=== PATIENT | female | born 1940 | race Caucasian/White ===

== ENCOUNTER 2017-11-27 08:50 | Outpatient (CLI) | payer OTHER | END 2017-11-27 09:08 | disposition home or self-care (01) | LOC: SONOGRAMA 08:50 | DX: M25.512 Pain in left shoulder (principal) ==

== ENCOUNTER 2018-08-20 07:55 | Outpatient (CLI) | payer OTHER | END 2018-08-20 11:42 | disposition home or self-care (01) | LOC: MRI 07:55 | DX: M25.572 Pain in left ankle and joints of left foot (principal) | CPT/HCPCS: 73723; A9579; 73720 ==

== ENCOUNTER 2019-01-04 07:07 | Outpatient (CLI) | payer OTHER | END 2019-01-04 07:11 | disposition home or self-care (01) | LOC: RAD 07:07 | DX: M25.512 Pain in left shoulder (principal) ==

== ENCOUNTER 2019-02-17 08:28 | Outpatient (CLI) | payer OTHER | END 2019-02-17 08:30 | disposition home or self-care (01) | LOC: SONOGRAMA 08:28 → MAMO-SONO 09:15 | DX: M25.512 Pain in left shoulder (principal) ==

== ENCOUNTER 2019-08-05 08:25 | Outpatient (CLI) | payer OTHER | END 2019-08-05 08:27 | disposition home or self-care (01) | LOC: MRI 08:25 | DX: M54.5 Low back pain (principal) | CPT/HCPCS: 72148 ==

== ENCOUNTER 2020-08-28 06:40 | Outpatient (CLI) | payer OTHER | END 2020-08-28 06:46 | disposition home or self-care (01) | LOC: LAB 06:40 | PROVIDERS: ATTEND Orthopaedic Surgery | DX: E56.1 Deficiency of vitamin K (principal) ==